=== PATIENT | male | born 1945 | race Caucasian/White ===

== ENCOUNTER → 2016-05-27 | Outpatient (CLI) | payer MEDICARE ==
[2016-01-15 15:26] VITALS: BP 146/77
[~2016-05-27] MED LIST: APIX5TAB PO; DIAZ5TAB PO; HYDR-2678 PO; LEVO500T38 PO; METO25TA4 PO; SIMV10TA3 PO; SIMV40TA3 PO; TAMS0.4C2 PO; TRAM50TA PO
--- NOTE | 2016-05-29 19:41 | RESP ---
DATE OF SERVICE: 05/27/2016 ATTENDING PHYSICIAN: Dr. Danielle Núñez. The patient's FVC was 3.14, which is 72% predicted; FEV1 2.37, which is 74% predicted; the FEV1/FVC ratio was normal. RYW86-33 was 71% predicted. There was no response to bronchodilators. Lung volume showed a total lung capacity of 85% predicted. Diffusion capacity 82% predicted. IMPRESSION: 1. Mild obstructive airway disease. 2. No response to bronchodilators. 3. Normal diffusion capacity. 4. No evidence of restrictive lung disease. JHONATAN VILLA MD DR: DAVID/tirso JOB#: [id number] / [id number] ecc DANIELLE NÚÑEZ MD
== END | disposition home or self-care (01) ==
LOC: PF 07:55
PROVIDERS: ATTEND Internal Medicine Cardiovascular Disease
DX: Z79.899 Other long term (current) drug therapy (principal)
CPT/HCPCS: 94060; 94729

== ENCOUNTER → 2016-05-28 | Outpatient (CLI) | payer MEDICARE, OTHER ==
[2016-01-15 15:26] VITALS: BP 146/77
[2016-05-28 13:36] LABS: ALBUMIN 3.6 g/dL (3.4-5.0); DIRECT BILIRUBIN 0.1 mg/dL (0.0-0.2); TOTAL BILIRUBIN 0.4 mg/dL (0.2-1.0); TOTAL PROTEIN 6.7 g/dL (6.4-8.2)
[2016-05-28 13:44] LABS: FREE T4 1.06 ng/dL (0.76-1.46)
== END | disposition home or self-care (01) ==
LOC: LAB 12:44
PROVIDERS: ATTEND Internal Medicine Cardiovascular Disease
DX: Z79.899 Other long term (current) drug therapy (principal)
CPT/HCPCS: 36415; 80076; 84439; 84443

== ENCOUNTER → 2016-08-13 | Outpatient (CLI) | payer MEDICARE ==
[2016-01-15 15:26] VITALS: BP 146/77
[2016-08-13 12:07] LABS: CREATININE 1.5 mg/dL (0.7-1.3); GFR 45.9; MAGNESIUM 2.2 mg/dL (1.8-2.4); POTASSIUM 4.6 mmol/L (3.5-5.1)
[2016-08-13 12:08] LABS: CALCIUM 9.2 mg/dL (8.5-10.1)
--- NOTE | 2016-08-13 12:09 | RAD ---
Indication cardiac arrhythmia. PA and lateral views of the chest were obtained and are compared to a study 10/02/2014. The heart and pulmonary vessels are within normal limits. Somewhat tortuous thoracic aorta is noted similar to the previous exam. There is no focal infiltrate. There has not been a significant change in the appearance of the chest compared to the previous exam. There are some degenerative changes about both shoulders IMPRESSION: No acute or focal process. No significant change
--- NOTE | 2016-08-13 17:05 | CARD ---
APPROVED REPORT EXAM: Two-dimensional and M-mode echocardiogram with Doppler and color Doppler. Other Information Quality : PoorHR: 64bpm Rhythm : NSR INDICATION Atrial Fibrillation Short of air, Cough 2D DIMENSIONS IVSd1.3 (0.7-1.1cm)Aortic Root(2D)2.7 (2.0-3.7cm) LVDd4.8 (3.9-5.9cm)LVOT Diameter2.3 (1.8-2.4cm) PWd1.4 (0.7-1.1cm)LVDs2.8 (2.5-4.0cm) FS (%) 41.5 %SV76.4 ml Aortic Valve AoV Peak Malachi.121.0cm/sAoV VTI23.5cm AO Peak GR.5.9mmHgLVOT Peak Malachi.93.4cm/s LVOT VTI 16.51cmAO Mean GR.3mmHg ERIBERTO (VMAX)2.83nr0NFZ (VTI)2.94cm2 Mitral Valve MV E Htuncjvs83.4cm/sMV DECEL [id number] MV A Egmxcumj83.7cm/sMV E Mean Gr.1mmHg MV WSB41qnU/A Ratio0.8 MV A Nzdjwrho44xqGHQ (PHT)2.35cm2 TDI E/Lateral E'5.5E/Medial E'7.3 LEFT VENTRICLE Technically difficult study. The left ventricle is normal size. There is mild to moderate concentric left ventricular hypertrophy. Left ventricle systolic function is normal. The Ejection Fraction is 50 -55%. There is normal LV segmental wall motion. Transmitral Doppler flow pattern is Grade I-abnormal relaxation pattern. RIGHT VENTRICLE The right ventricle is normal size. There is normal right ventricular wall thickness. The right ventr icular systolic function is normal. ATRIA The left atrium is not well visualized. The right atrium is not well visualized. The interatrial sept um is intact with no evidence for an atrial septal defect or patent foramen ovale as noted on 2-D or Doppler imaging. AORTIC VALVE The aortic valve is not well visualized but opens well. Doppler and Color Flow revealed no significan t aortic regurgitation. There is no significant aortic valvular stenosis. MITRAL VALVE The mitral valve is not well visualized but appears to open well. There is no mitral valve stenosis. Doppler and Color Flow revealed tracel mitral valve regurgitation. TRICUSPID VALVE The tricuspid valve is not well visualized. Doppler and Color Flow revealed trace tricuspid valve reg urgitation. PULMONIC VALVE Doppler and Color Flow revealed no pulmonic valvular regurgitation. There is no pulmonic valvular gary nosis. GREAT VESSELS The aortic root is normal in size. The ascending aorta is normal in size. The pulmonary artery is nor mal. Pulmonary veins were not well visualized. The IVC was obscured, unable to assess. PERICARDIAL EFFUSION There is no evidence of significant pericardial effusion. Critical Notification Critical Value: No <Conclusion> Technically difficult study. The left ventricle is normal size. Left ventricle systolic function is normal. The Ejection Fraction is 50-55%. There is mild to moderate concentric left ventricular hypertrophy. There is no significant aortic valvular stenosis. Doppler and Color Flow revealed no significant aortic regurgitation. Doppler and Color Flow revealed tracel mitral valve regurgitation. Doppler and Color Flow revealed trace tricuspid valve regurgitation.
== END | disposition home or self-care (01) ==
LOC: ECHO 10:38
PROVIDERS: ATTEND Internal Medicine Cardiovascular Disease
DX: I08.1 Rheumatic disorders of both mitral and tricuspid valves (principal); R05 Cough; R06.02 Shortness of breath
CPT/HCPCS: 36415; 71020; 80048; 83735; 84443; 93306

== ENCOUNTER → 2016-11-15 | Outpatient (CLI) | payer MEDICARE ==
[2016-01-15 15:26] VITALS: BP 146/77
[~2016-11-15] MED LIST changes: -LEVO500T38 PO; +LEVO500T59 PO
[2016-11-15 12:08] LABS: BASO # 0.1 x10^3/uL (0.0-0.2); BASO % 1 % (0-3); EOS % 4 % (0-3); HEMATOCRIT 43.9 % (39.0-53.0); HEMOGLOBIN 14.7 g/dL (13.0-17.5); LYMPH # 1.8 x10^3/uL (1.0-4.8); LYMPH % 24 % (24-48); MEAN CORPUSCULAR HEMOGLOBIN 32 pg (25-35); MEAN CORPUSCULAR HGB CONC 33 g/dL (31-37); MEAN CORPUSCULAR VOLUME 97 fL (79-100); MONO % 5 % (0-9); NEUT % 67 % (31-73); PLATELET COUNT 182 x10^3/uL (140-400); RED BLOOD COUNT 4.55 x10^6/uL (4.30-5.70); RED CELL DISTRIBUTION WIDTH 13.8 % (11.5-14.5); WHITE BLOOD COUNT 7.8 x10^3/uL (4.0-11.0)
[2016-11-15 12:31] LABS: ALBUMIN 3.5 g/dL (3.4-5.0); CALCIUM 8.8 mg/dL (8.5-10.1); CREATININE 1.4 mg/dL (0.7-1.3); DIRECT BILIRUBIN 0.2 mg/dL (0.0-0.2); GFR 49.7; POTASSIUM 4.4 mmol/L (3.5-5.1); TOTAL BILIRUBIN 0.6 mg/dL (0.2-1.0); TOTAL PROTEIN 7.4 g/dL (6.4-8.2)
[2016-11-15 12:35] LABS: CHOLESTEROL/HDL RATIO 2.7
--- NOTE | 2016-11-15 17:01 | RAD ---
Chest x-ray Indication: Atrial fibrillation. Shortness of breath. Technique: PA and lateral views of the chest Comparison: Previous study from 08/13/2016 Findings: Heart is normal in size. Lungs are clear. Stable nodular opacity in the left lower lung zone likely calcified granuloma. No pneumothorax or pleural effusion. Bilateral AC joint osteoarthritis. Impression: No acute cardiopulmonary process.
== END | disposition home or self-care (01) ==
LOC: RAD 11:39
PROVIDERS: ATTEND Internal Medicine Cardiovascular Disease
DX: I10 Essential (primary) hypertension (principal); I48.91 Unspecified atrial fibrillation; E78.5 Hyperlipidemia, unspecified; R06.02 Shortness of breath
CPT/HCPCS: 36415; 71020; 80048; 80061; 80076; 83735; 85025; 85379

== ENCOUNTER 2018-02-22 01:34 | Emergency (ER) | payer MEDICARE ==
[~2018-02-22] VITALS: Ht 182.9 cm; Wt 149.7 kg
--- NOTE | 2018-02-22 02:06 | PHYS DOC ---
Past Medical History Past Medical History: High Cholesterol, Hypertension, Other Additional Past Medical Histor: PTSD,URINARY FREQUENCY, paroxysmal Afib Past Surgical History: Other Additional Past Surgical Histo: HERNIA REPAIR,NECK AND BACK SURG,BILAT KNEE ARTHROSCOPY Alcohol Use: Rarely Drug Use: None Adult General Chief Complaint Chief Complaint: MECHANICAL FALL HPI HPI Patient is a 72 year old male who presents via EMS from home following a fall from standing height. The patient was walking down the stairs in his garage when he missed a step and fell down onto his back and R shoulder. The patient then fell on the ground and stayed there for 3 hours because he couldn't get up he said his arm was hurting too much and he was having trouble getting onto was holding her pieces of glucose to his dizzy reason she feels better he does have some mild posterior neck pain as well as pain with shoulder. No chest pain no abdominal pain no loss of consciousness he did not hit his head. tetanus unk (ordered) Review of Systems Review of Systems Constitutional: Denies fever or chills [] Eyes: Denies change in visual acuity, redness, or eye pain [] HENT: Denies nasal congestion or sore throat [] Respiratory: Denies cough or shortness of breath [] Cardiovascular: No additional information not addressed in HPI [] GI: Denies abdominal pain, nausea, vomiting, bloody stools or diarrhea [] : Denies dysuria or hematuria [] Musculoskeletal: Integument: Neurologic: Denies headache, focal weakness or sensory changes [] Endocrine: Denies polyuria or polydipsia [] All other systems were reviewed and found to be within normal limits, except as documented in this note. Current Medications Current Medications Current Medications Medications (Trade) Dose Ordered Sig/Margarita Start Time Stop Time Status Last Admin Dose Admin Acetaminophen/ Hydrocodone Bitart (Lortab 5/325) 2 tab 1X ONCE 02/22/18 03:30 02/22/18 03:31 DC 02/22/18 03:34 2 TAB Diazepam (Valium) 5 mg 1X ONCE 02/22/18 03:30 02/22/18 03:31 DC 02/22/18 03:34 5 MG Diphtheria/ Tetanus/Acell Pertussis (Boostrix) 0.5 ml ONCE ONCE 02/22/18 04:00 02/22/18 04:01 DC 02/22/18 04:46 0.5 ML Meclizine HCl (Antivert) 25 mg 1X ONCE 02/22/18 02:15 02/22/18 02:16 DC 02/22/18 03:15 25 MG Ondansetron HCl (Zofran Odt) 4 mg 1X ONCE 02/22/18 03:30 02/22/18 03:31 DC 02/22/18 03:34 4 MG Allergies Allergies Allergies Coded Allergies Type Severity Reaction Last Updated Verified Penicillins Allergy Intermediate hives 10/02/14 No doxycycline Allergy Intermediate 10/02/14 No Physical Exam Physical Exam Constitutional: Well developed, well nourished, no acute distress, non-toxic appearance. [] HENT: Normocephalic, atraumatic, bilateral external ears normal, oropharynx moist, no oral exudates, nose normal. [] Eyes: PERRLA, EOMI, conjunctiva normal, no discharge. [] Neck: Normal range of motion, c6-7 midline mild tenderness, supple, no stridor. [] Cardiovascular:Heart rate regular rhythm, no murmur [] Lungs & Thorax:no chest wall ttp normal respiraotry effort no retractions. Abdomen: Bowel sounds normal, soft, no tenderness, no masses, no pulsatile masses. [] Skin: abrasions b/l shins. Extremities:full rom b/l hips and knees. mild pain with rom right shoulder rom somehwat limited. Neurologic: Alert and oriented X 3, normal motor function, normal sensory function, no focal deficits noted. [] Psychologic: Affect normal, judgement normal, mood normal. [] Current Patient Data Vital Signs Vital Signs Date Time Temp Pulse Resp B/P (MAP) Pulse Ox O2 Delivery O2 Flow Rate FiO2 02/22/18 01:37 97.8 94 16 150/78 (102) 94 Room Air 97.8 Lab Values Laboratory Tests Test 02/22/18 03:04 Glucose (Fingerstick) 130 mg/dL (70-99) H EKG EKG [] Radiology/Procedures Radiology/Procedures [] Course & Med Decision Making Course & Med Decision Making Pertinent Labs and Imaging studies reviewed. (See chart for details) delay in er care as pt is very claustrophobci and needed anxiolytic prior to ct scan and xray shoulder xray neg by my read. ct cspine neg acute, sig arthritis noted symptomatic tx in er with improvement.[] return precautions reviewed Terra Disclaimer Dragsuma Disclaimer This electronic medical record was generated, in whole or in part, using a voice recognition dictation system. Departure Departure Impression: Primary Impression: Shoulder pain Disposition: HOME, SELF-CARE Condition: STABLE Referrals: UNKNOWN PCP NAME (PCP) Scripts Oxycodone/Apap 5-325 (PERCOCET 5-325 MG TABLET ) 1 Each Tablet 1-2 EACH PO PRN TID PRN for PAIN, #15 TAB pain Prov: OBDULIA GAR MD 02/22/18 OBDULIA GAR MD Feb 22, 2018 02:06
[2018-02-22] MEDS: MECLIZINE HCL 12.5 MG TABLET. PO ONE (03:15)
[2018-02-22] MEDS: HYDROcodone/APAP 5/325MG 1 TAB TABLET PO ONE (03:34)
[2018-02-22] MEDS: ONDANSETRON ODT 4 MG TAB.RAPDIS. PO ONE (03:34)
[2018-02-22] MEDS: diazePAM 5 MG TABLET PO ONE (03:34)
[2018-02-22 04:30] VITALS: BP 153/87
--- NOTE | 2018-02-22 04:42 | RAD ---
INDICATION: fall, neck tenderness, rt shoulder pain, no priors COMPARISON: None. TECHNIQUE: Axial CT images obtained through the cervical spine. One or more of the following individualized dose reduction techniques were utilized for this examination: 1. Automated exposure control; 2. Adjustment of the mA and/or kV according to patient size; 3. Use of iterative reconstruction technique. FINDINGS: Severe degenerative changes with osteophyte formation as well as disc protrusions, uncovertebral and facet hypertrophy which contributes to multilevel central canal and neural foraminal stenosis which appears severe at many of the levels. Partial resection changes at C5 posterior elements on the left versus congenital changes. Thyroid nodules are identified. IMPRESSION: 1. 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 2. A definite acute fracture line is not seen. Electronically signed by: Zelalem Lewis MD (02/22/2018 4:38 AM) [id number]
[2018-02-22] MEDS: DIPHTH,PERTUSS(ACELL),TET TOX 0.5 ML DISP.SYRIN. VAX IM ONE (04:46)
[2018-02-22] MEDS ORDERED: OXYC1TAB15 PO (04:54)
--- NOTE | 2018-02-22 08:10 | RAD ---
Examination: 2 views of the right shoulder HISTORY: History of fall, right shoulder pain COMPARISON: None available FINDINGS: The humerus head is within the glenoid. There is severe joint space loss identified in the acromioclavicular joint with osteophyte formation. There is moderate joint space loss identified in the glenohumeral joint. IMPRESSION: Degenerative changes identified in the AC joint and the glenohumeral joint , most severe in the AC joint. Electronically signed by: Otf Johansen MD (02/22/2018 8:07 AM) [facility]
== END 2018-02-22 05:30 | disposition home or self-care (01) ==
LOC: ER 01:34
DX: M25.511 Pain in right shoulder (principal); G89.11 Acute pain due to trauma; I10 Essential (primary) hypertension; E78.00 Pure hypercholesterolemia, unspecified; F43.10 Post-traumatic stress disorder, unspecified; Z88.0 Allergy status to penicillin; Z88.8 Allergy status to other drugs, medicaments and biological substances; W18.09XA Striking against other object with subsequent fall, initial encounter; Y93.89 Activity, other specified; Y92.89 Other specified places as the place of occurrence of the external cause; Y99.8 Other external cause status
CPT/HCPCS: 72125; 73030; 82962; 90471; 90715; 99284; J8597; Q0162

== ENCOUNTER → 2018-05-14 | Outpatient (CLI) | payer MEDICARE ==
[~2018-05-14] MED LIST changes: +OXYC1TAB15 PO
--- NOTE | 2018-05-14 15:39 | CARD ---
MR#: [id number] Date of Study: 05/14/2018 Ordering Physician: DANIELLE SLAUGHTER, Referring Physician: DANIELLE SLAUGHTER, Tech: Cheryl Pisano [facility] APPROVED REPORT EXAM: Two-dimensional and M-mode echocardiogram with Doppler and color Doppler. Other Information Quality : Technically Limited Technically limited study due to morbid obesity INDICATION Exertional Dyspnea 2D DIMENSIONS Left Atrium(2D)4.1 (1.6-4.0cm)IVSd1.4 (0.7-1.1cm) Aortic Root(2D)2.4 (2.0-3.7cm)LVDd4.4 (3.9-5.9cm) LVOT Diameter2.0 (1.8-2.4cm)PWd1.0 (0.7-1.1cm) LVDs2.9 (2.5-4.0cm)FS (%) 33.6 % SV53.9 mlLVEF(%)62.7 (>50%) Aortic Valve AoV Peak Malachi.110.0cm/sAoV VTI16.8cm AO Peak GR.4.8mmHgLVOT Peak Malachi.86.5cm/s AO Mean GR.3mmHgAVA (VMAX)2.42cm2 ERIBERTO (VTI)2.20cm2 Mitral Valve MV E Xbajhmmc19.9cm/sMV DECEL [id number] MV A Swfdawis58.5cm/sE/A Ratio0.8 Pulmonary Vein S1 Cixfuuae07.1cm/sD2 Wnhdyzts23.7cm/s LEFT VENTRICLE Technically difficult study. The left ventricle is normal size. There is mild asymmetric septal hyper trophy. The left ventricular systolic function is normal. The ejection fraction is 55-60%. There is n ormal LV segmental wall motion. Transmitral Doppler flow pattern is Grade I-abnormal relaxation patte rn. RIGHT VENTRICLE The right ventricle is normal size. There is normal right ventricular wall thickness. The right ventr icular systolic function is normal. ATRIA The left atrium is mildly dilated. The right atrium size is normal. The interatrial septum is intact with no evidence for an atrial septal defect or patent foramen ovale as noted on 2-D or Doppler imagi ng. AORTIC VALVE The aortic valve is not well visualized. Doppler and Color Flow revealed no significant aortic regurg itation. There is no significant aortic valvular stenosis. MITRAL VALVE The mitral valve is calcified but opens well. There is no evidence of mitral valve prolapse. There is no mitral valve stenosis. Doppler and Color Flow revealed trace mitral valve regurgitation. TRICUSPID VALVE The tricuspid valve was not well visualized. PULMONIC VALVE The pulmonic valve is not well visualized. GREAT VESSELS The aortic root is normal in size. The ascending aorta is not well seen. The IVC was not visualized. PERICARDIAL EFFUSION There is no evidence of significant pericardial effusion. Critical Notification Critical Value: No <Conclusion> Technically difficult study. The left ventricle is normal size. The left ventricular systolic function is normal. The ejection fraction is 55-60%. There is mild asymmetric septal hypertrophy. There is no significant aortic valvular stenosis. Doppler and Color Flow revealed no significant aortic regurgitation. Doppler and Color Flow revealed trace mitral valve regurgitation. The tricuspid valve was not well visualized. Signed by : Danielle Slaughter MD Electronically Approved : 05/14/2018 15:38:47
== END | disposition home or self-care (01) ==
LOC: ECHO 13:39
PROVIDERS: ATTEND Internal Medicine Cardiovascular Disease
DX: I25.10 Atherosclerotic heart disease of native coronary artery without angina pectoris (principal); I51.7 Cardiomegaly; R00.8 Other abnormalities of heart beat; E66.01 Morbid (severe) obesity due to excess calories
CPT/HCPCS: 93306